=== PATIENT | female | born 1970 | race Caucasian/White ===

== ENCOUNTER → 2019-08-17 | Outpatient (CLI) | payer OTHER ==
--- NOTE | 2019-08-17 14:24 | Diagnostic Imaging Report ---
EXAM: Limited right breast ultrasound INDICATION: Right breast pain FINDINGS: The diagnostic mammogram performed prior to this study failed to show any sign of malignancy or for an acute abnormality to account for the patient's right breast pain. On this study, there is no discrete solid or cystic mass identified nor is there any evidence for an abscess. IMPRESSION: There is no evidence for malignancy or for an acute abnormality. Clinical follow-up is recommended. ACR category 1 ACR BI-RADS Category 1: Negative. Result letter will be mailed to the patient. Note: At least 10% of breast cancer is not imaged by mammography. Dictated by: Dictated on workstation # [id number]
--- NOTE | 2019-08-21 08:53 | Diagnostic Imaging Report ---
EXAMINATION: Digital mammogram bilateral diagnostic with CAD. INDICATION: Right breast pain. TECHNIQUE: This is the patient's baseline study. PERSONAL HISTORY: At this time, she does complain of pain in the right breast. FINDINGS: There are scattered fibroglandular densities in both breasts which could obscure a lesion. There is no primary or secondary sign of malignancy noted. There is no abnormality in the right breast to account for the patient's pain either. IMPRESSION: 1. There is no evidence of malignancy or for an acute abnormality of the right breast. 2. Ultrasound of the right breast is pending for further study. ACR BI-RADS Category 0: Incomplete. (Needs additional imaging evaluation). Result letter will be mailed to the patient. Note: At least 10% of breast cancer is not imaged by mammography. Dictated by: Dictated on workstation # [id number]
== END ==
LOC: RAD 13:02
PROVIDERS: ATTEND Nurse Practitioner Family
DX: N64.4 Mastodynia (principal)
CPT/HCPCS: 76642; 77066; G0279; 77062